=== PATIENT | female | born 1980 | race Caucasian/White ===

== ENCOUNTER 2020-12-26 12:04 | Emergency (ER) | payer BC, SELFPAY ==
[2020-12-26 12:17] VITALS: BP 141/90; PULSE 108; RESP 16; TEMP 37.3; O2SAT 99
--- NOTE | 2020-12-26 12:22 | ED.URI ---
HPI - URI/Sore Throat General Chief Complaint: Upper Respiratory Infection Stated Complaint: Congestion,Headache Time Seen by Provider: 12/26/20 12:33 Source: patient Mode of arrival: ambulatory Limitations: no limitations History of Present Illness HPI Narrative: Emily Church is a 40 yo female with a PMH of chronic sinus congestion, adenamous polyposis (FAP), comes with complaints of chronic sinus infection and increased congestion. Patient states she cannot take any kind of steroid or steroid nasal spray because it makes her headaches worse she has a lot of problems with headaches bilateral ear pain and TMJ that she relates to her sinus congestion. She recently moved here but states that the only thing that works for dealing with her sinuses and her chronic conditions are antibiotics and she is allergic to many of them Related Data Home Medications Medication Instructions Recorded Confirmed loperamide 2 mg PO QID 12/26/20 12/26/20 Allergies Allergy/AdvReac Type Severity Reaction Status Date / Time amoxicillin Allergy Nausea and Verified 12/26/20 12:29 Vomiting levofloxacin [From Levaquin] Allergy Hives Verified 12/26/20 12:29 scopolamine Allergy Hallucinati Verified 12/26/20 12:29 ng Sulfa (Sulfonamide Allergy Rash Verified 12/26/20 12:29 Antibiotics) tramadol Allergy Rash Verified 12/26/20 12:29 Review of Systems Review of Systems: Narrative: CONSTITUTIONAL: Denies fever, chills, sweats. EYES: Denies visual changes, redness, discharge. ENT: Denies rhinorrhea, mild congestion, mild sore throat, mild otalgia. Complaining of headache and chronic congestion CARDIOVASCULAR: Denies chest pain, palpitations, edema. RESPIRATORY: Denies dyspnea, wheezing, cough GASTROINTESTINAL: Denies abdominal pain, nausea, vomiting, diarrhea. GENITOURINARY: Denies dysuria, hematuria, abnormal discharge SKIN: Denies rash or itching. NEUROLOGIC: Denies numbness, or focal weakness. PSYCHIATRIC: Denies anxiety or depression. [facility] Past Medical History Medical History (Updated 12/26/20 @ 12:51 by Chanelle Cunningham CNP) Anemia FAP (familial adenomatous polyposis) TMJ arthralgia Family History Family History Other FAP (familial adenomatous polyposis) Social History Social History (Updated 12/26/20 @ 12:45 by Chanelle Cunningham CNP) Smoking status: Never smoker Alcohol intake: never Comments At time of signature, I agree with nursing past medical, surgical, social and family history. There is no relevant family history pertinent to the presenting complaint. Exam Narrative: Exam Narrative: GENERAL: This is a well-nourished, well-developed patient, in mild distress. HEAD: normocephalic, atraumatic. EYES: Sclera clear/white. Vision is grossly intact. EARS: External ears normal, auditory canals erythema and without drainage, TMs normal without perforation. Hearing grossly intact. NOSE: External nose normal with nasal discharge, nares with redness, has rhinorrhea. THROAT: Mucous membranes moist, posterior pharynx mild erythema no exudate NECK: Neck supple, non-tender CARDIOVASCULAR: Regular rate and rhythm without murmurs, gallops, or rubs. RESPIRATORY: Clear to auscultation. Breath sounds equal bilaterally. No wheezes, rales, or rhonchi. GASTROINTESTINAL: Abdomen soft, non-tender, SKIN: warm, intact with no suspicious lesions or rash, good texture and turgor. NEURO: awake, alert, and oriented to person, place and time. There were no obvious focal neurologic abnormalities. Steady gait EXTREMITIES: Normal range of motion. BACK: Nontender without deformity Course Course Emergency Course: Patient here for medication for sinus infection that she has had for 4 to 5 weeks she states that she is not able to take any kind of prednisone or Flonase and [id number] antihistamines and pain medication has not been useful she is recently moved here and use
== END 2020-12-26 12:53 | disposition home or self-care (01) ==
PROVIDERS: Emergency Provider Nurse Practitioner
DX: J32.9 Chronic sinusitis, unspecified (principal); D12.6 Benign neoplasm of colon, unspecified
CPT/HCPCS: 99203; G0463

== ENCOUNTER 2022-01-04 19:24 | Emergency (ER) | payer BC, SELFPAY ==
[2022-01-04] VITALS (21 sets, daily range): BP systolic 123–162; BP diastolic 67–110; PULSE 114–148; RESP 18–29; TEMP 36.3; O2SAT 95–100
--- NOTE | ~2022-01-04 | CT_ITS ---
EXAMINATION: CT brain wo con DATE: 01/04/2022 20:21 INDICATION: Unresponsive. TECHNIQUE: Computed tomography (CT) of the head was performed without intravenous contrast. The mA wa s adjusted according to patient size. Iterative reconstruction technique was employed. The dose-lengt h product was 605.33 mGy-cm. COMPARISON: None FINDINGS: There is no intracranial hemorrhage, acute infarction, or abnormal intracranial mass lesion . There is an empty sella. The ventricles are normal in size. The orbits are normal. The paranasal si nuses are clear. The mastoid air cells are normal. IMPRESSION: 1. No acute intracranial pathology. Reviewed, dictated and finalized at location A.
--- NOTE | 2022-01-04 19:39 | ECG_ITS ---
Measurements Intervals [place] Rate: 110 P: 36 FL: 153 QRS: 28 QRSD: 77 T: 41 QT: 316 QTc: 428 Interpretive Statements SINUS TACHYCARDIA BORDERLINE ST-T WAVE ABNORMALITY- INFERIOR LEADS ABNORMAL ECG Electronically Signed On 01-05-2022 6:38:52 CDT by Chauncey Sloan D.O.
[2022-01-04 19:51] LABS: Basophils Absolute Auto 0.1 K/mm3 (0.0-0.1); Basophils Percent Auto 0.8 % (0.2-1.2); Eosinophils Absolute Auto 0.3 K/mm3 (0-0.3); Eosinophils Percent Auto 3.4 % (0-4.4); Hematocrit 43.7 % (37.0-47.0); Hemoglobin 13.9 g/dL (12.0-15.0); Immature Granulocyte Absolute 0.05 K/mm3 (0.00-0.031); Immature Granulocyte Percent A 0.5 % (0-0.5); Lymphocytes Absolute Auto 3.52 K/mm3 (0.9-3.2); Lymphocytes Percent Auto 37.2 % (18.3-44.2); Mean Corpuscular HGB Conc 31.8 g/dl (32-36); Mean Corpuscular Hemoglobin 26.4 pg (26-34); Mean Corpuscular Volume 83.1 fl (80-100); Monocytes Absolute Auto 0.7 K/mm3 (0.1-0.6); Monocytes Percent Auto 7.3 % (2.6-8.5); Neutrophils Absolute Auto 4.8 K/mm3 (1.3-6.7); Neutrophils Percent Auto 50.8 % (45.5-73.1); Platelet Count Result 280 k/mm3 (150-375); Red Blood Count 5.26 M/mm3 (4.2-5.4); Red Cell Distribution Width 13.1 % (11.5-14.5); White Blood Count 9.5 K/mm3 (4.5-10.0)
[2022-01-04 20:02] LABS: Alanine Aminotransferase 24 U/L (4-35); Albumin Level 4.4 g/dL (3.5-5.1); Alkaline Phosphatase 55 U/L (38-126); Anion Gap 14 mmol/L (8-16); Aspartate Amino Transferase 31 U/L (14-36); Bilirubin,Total 0.1 mg/dL (0.2-1.3); Blood Urea Nitrogen 11 mg/dL (7-17); Calcium 9.5 mg/dL (8.4-10.2); Carbon Dioxide 18 mmol/L (22-30); Chloride 104 mmol/L (98-107); Glucose 153 mg/dL (65-110); Potassium 3.6 mmol/L (3.4-5.0); Sodium 136 mmol/L (137-145)
[2022-01-04 20:21] LABS: Estimated Glomerular Filt Rate > 60
--- NOTE | 2022-01-04 20:23 | ED.SEIZURE ---
HPI - Seizure General Chief Complaint: Seizure Stated Complaint: SEIZURE Time Seen by Provider: 01/04/22 19:53 Source: patient History of Present Illness HPI Narrative: Patient presents with concern for seizure. She was at high school concert she was trying to describe something a student was doing was having a hard time finding the right word when her eyes went wide her left arm extended her right arm retracted she went stiff. Event was witnessed the patient was lowered to the ground and the event lasted 2 to 3 minutes and the patient slowly returned to her baseline. Patient reports a mild headache now but does report a history of migraines otherwise feels like her usual self. She felt well earlier in the day she denies any recent fevers, cough, congestion, nausea, vomiting. She denies prior similar episodes. Related Data Home Medications Medication Instructions Recorded Confirmed dicyclomine 20 mg tablet 20 mg PO BID 06/08/21 06/27/21 ferrous sulfate 27 mg iron tablet 27 mg PO DAILY 06/08/21 06/27/21 multivitamin 1 tablet PO DAILY 06/08/21 06/27/21 omeprazole 20 mg tablet,delayed 20 mg PO DAILY 06/08/21 06/27/21 release cholecalciferol (vitamin D3) 250 250 mcg PO DAILY 11/30/21 mcg (10,000 unit) capsule diphenhydramine HCl 25 mg tablet 25 mg PO QHS 11/30/21 esterified estrogens 0.3 mg tablet 0.3 mg PO DAILY 11/30/21 lactobacillus combination no.9 4 PO 11/30/21 billion cell capsule loratadine 10 mg tablet 10 mg PO DAILY 11/30/21 omega-3 fatty acids 500 mg capsule 500 mg PO DAILY 11/30/21 propranolol 40 mg tablet 40 mg PO Q12H 11/30/21 vitamin K2 45 mcg capsule 45 mcg PO DAILY 11/30/21 Allergies Allergy/AdvReac Type Severity Reaction Status Date / Time sulfamethoxazole Allergy Mild Vomiting Verified 11/30/21 09:45 [From Bactrim] sumatriptan [From Imitrex] Allergy Mild Nausea Verified 11/30/21 09:45 trimethoprim [From Bactrim] Allergy Mild Vomiting Verified 11/30/21 09:45 amoxicillin Allergy Nausea and Verified 11/30/21 09:45 Vomiting levofloxacin [From Levaquin] Allergy Hives Verified 11/30/21 09:45 scopolamine Allergy Hallucinati Verified 11/30/21 09:45 ng Sulfa (Sulfonamide Allergy Rash Verified 11/30/21 09:45 Antibiotics) tramadol Allergy Rash Verified 11/30/21 09:45 Review of Systems Review of Systems: CONSTITUTIONAL: Denies fever, chills, or sweats. EYES: Denies visual changes, redness, or discharge. ENT: Denies rhinorrhea, congestion, sore throat, or otalgia. CARDIOVASCULAR: Denies chest pain, palpitations, or edema. RESPIRATORY: Denies cough or dyspnea. GASTROINTESTINAL: Denies abdominal pain, nausea, vomiting, or diarrhea. GENITOURINARY: Denies dysuria or hematuria. SKIN: Denies rash or itching. MUSCULOSKELETAL: Denies back pain, joint pain, or myalgia. NEUROLOGIC: Denies numbness, dizziness, or weakness. PSYCHIATRIC: Denies anxiety or depression. All systems reviewed & are unremarkable except as noted in HPI and below PMFSH Past Medical History Medical History Allergies Anemia Attenuated familial adenomatous polyposis GERD (gastroesophageal reflux disease) TMJ arthralgia Surgical History Surgical History Hx of ileostomy And reversal Hx of total colectomy S/P dilation and curettage S/P endometrial ablation Family History Family History Father Cancer Heart problem Mother Hypertension Sibling Asthma Grandparent Cancer Heart problem Other FAP (familial adenomatous polyposis) Social History Social History Smoking status: Never smoker Alcohol intake: never Substance use: never Exam Narrative: GENERAL: Well-appearing, well-nourished, and in no acute distress. HEAD: Normocephalic, atraumatic. EYES: PERRLA and EOMI. ENT:
[2022-01-04] MEDS: METOCLOPRAMIDE HCL INJ 10 MG/2 ML VIAL IV PUSH (21:06)
[2022-01-04] MEDS: SODIUM CHLORIDE 0.9% IV 1,000 ML 999 ML IV CONT (21:07)
[2022-01-08 22:08] LABS: Prolactin 67.4 ng/mL (***)
== END 2022-01-04 22:30 | disposition home or self-care (01) ==
PROVIDERS: Emergency Provider Emergency Medicine; PCP Internal Medicine
DX: R40.4 Transient alteration of awareness (principal); Z86.2 Personal history of diseases of the blood and blood-forming organs and certain disorders involving the immune mechanism; K21.9 Gastro-esophageal reflux disease without esophagitis; Z90.49 Acquired absence of other specified parts of digestive tract; R00.0 Tachycardia, unspecified; R94.31 Abnormal electrocardiogram [ECG] [EKG]
CPT/HCPCS: 36415; 70450; 80053; 84146; 85025; 93005; 96365; 96375; 99284; J0131; J2765; J7030

== ENCOUNTER 2022-01-25 09:54 | Outpatient (CLI) | payer BC, SELFPAY ==
--- NOTE | ~2022-01-25 | MR_ITS ---
EXAMINATION: MR brain/brain stem wo/w con DATE: 01/25/2022 10:48 INDICATION: Transient alteration of awareness. TECHNIQUE: Magnetic resonance imaging (MRI) of the brain and brainstem was performed without and with 13 mL MultiHance intravenous contrast. COMPARISON: Head CT 01/04/2022 FINDINGS: There is no intracranial hemorrhage, acute infarction, or abnormal intracranial mass lesion . There is an empty sella. The ventricles are normal in size. The orbits are normal. There is a mucou s retention cyst in left maxillary sinus. The mastoid air cells are normal. IMPRESSION: 1. No etiology for the patient's symptoms. Reviewed, dictated and finalized at location A.
--- NOTE | ~2022-01-25 | US_ITS ---
EXAMINATION: US thyroid DATE: 01/25/2022 11:21 INDICATION: Benign neoplasm of colon, unspecified. Attenuated familial adenomatous polyposis. TECHNIQUE: Multiple ultrasound images of the thyroid were obtained. COMPARISON: None. FINDINGS: The right thyroid lobe measures 4.6 x 1.5 x 1.6 cm. The left thyroid lobe measures 4.6 x 1.4 x 1.6 c m. There is normal echotexture and echogenicity throughout the thyroid gland. No discrete nodules id entified. Normal vascular flow is present. IMPRESSION: 1. Normal thyroid. Reviewed, dictated and finalized at location A. IMPRESSION: 1. Normal thyroid.
== END 2022-01-25 09:55 | disposition home or self-care (01) ==
PROVIDERS: PCP Internal Medicine; Visit Provider Clinical Nurse Specialist
DX: R40.4 Transient alteration of awareness (principal); D12.6 Benign neoplasm of colon, unspecified
CPT/HCPCS: 70553; 76536; A9577

== ENCOUNTER 2022-02-14 12:48 | Outpatient (CLI) | payer BC, SELFPAY ==
--- NOTE | 2022-02-14 14:01 | ECHO_ITS ---
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 Strain analysis performed. Summary 1. Complete two-dimensional, color flow and Doppler transthoracic echocardiogram is performed. 2. Left ventricular chamber dimension is normal. 3. Left ventricular systolic function is normal, estimated at 60-65%. 4. The left ventricular diastolic function is grade I diastolic dysfunction. 5. E/e' 8 is minimally elevated. 6. Global longitudinal strain is normal at -19.3%. 7. Dilated inferior vena cava with >50% collapse upon inspiration consistent with elevated right atrial pressure, 10 mmHg. Left Ventricle E/e' 8 is minimally elevated. Global longitudinal strain is normal at -19.3%. Left ventricular chamber dimension is normal. Left ventricular systolic function is normal, estimated at 60-65%. The left ventricular diastolic function is grade I diastolic dysfunction. Right Ventricle Right ventricular chamber dimension is normal. Right ventricular systolic function is normal. Left Atria Left atrial chamber dimension is normal. Right Atria Right atrial chamber dimension is normal. Aortic Valve The aortic valve is trileaflet. There is no aortic valve stenosis. There is no aortic valve regurgitation. Pulmonic Valve There is no pulmonic regurgitation. Mitral Valve There is no mitral valve stenosis. There is no mitral valve regurgitation. Tricuspid Valve There is no tricuspid valve regurgitation. Pericardium/Pleural There is no pericardial effusion. Inferior Vena Cava Dilated inferior vena cava with >50% collapse upon inspiration consistent with elevated right atrial pressure, 10 mmHg. Aorta The aortic root size at the sinus of Valsalva is normal. Left Ventricular Outflow Tract Name Value Normal LVOT 2D LVOT Diameter 2.1 cm LVOT Doppler LVOT Peak Gradient 4 mmHg LVOT Mean Gradient 2 mmHg LVOT VTI 20 cm LVOT VTI/AV VTI Ratio 0.7 LVOT Stroke Volume 72 ml LVOT CO 5.7 l/min LVOT CI 3.4 l/min/m2 Mitral Valve Name Value Normal MV Doppler
--- NOTE | 2022-02-15 09:50 | WPDNEUROLOGY ---
Neurology EEG Report General Information Date of Study: 02/14/22 TEST EEG DIAGNOSIS possible seizures CONDITION OF RECORDING awake drowsy and sleep EEG NUMBER [id number] CLINICAL HISTORY patient reports about a month ago she had an episode of aphasia, becoming rigid and then lost consciousness EEG DESCRIPTION basic resting occipital frequency consists of low to medium voltage 9 to 10 hertz per 2nd alpha admixed with low-voltage 15 to 18 hertz per 2nd beta. During drowsiness low-voltage beta activity seen diffusely admixed with intermittent posterior alpha rhythm. Bilateral symmetrical sleep activity seen during sleep of different stages. Hyperventilation not done. Photic stimulation produced normal drive. Non paroxysmal. Nonfocal. Nonlateralizing. IMPRESSION Normal record. Clinical correlation recommended
== END 2022-02-14 12:49 | disposition home or self-care (01) ==
PROVIDERS: PCP Internal Medicine; Visit Provider Clinical Nurse Specialist
DX: R40.4 Transient alteration of awareness (principal)
CPT/HCPCS: 93306; 95816

== ENCOUNTER 2022-03-04 11:15 | Emergency (ER) | payer BC, SELFPAY ==
[2022-03-04] VITALS (18 sets, daily range): BP systolic 121–154; BP diastolic 74–93; PULSE 83–115; RESP 17–29; TEMP 36.3; O2SAT 92–97
--- NOTE | ~2022-03-04 | CT_ITS ---
Patient Name: Patient Name MR#: Patient MRN Accession#: Accession Numbers EXAMINATION: CTA brain carotid DATE: 03/04/2022 13:26 INDICATION: seizure TECHNIQUE: Computed tomographic angiography (CTA) of the head was performed without and with 100 mL O mnipaque-350 intravenous contrast. CTA of the neck was performed with intravenous contrast. The dose- length product was 1700.12 mGy-cm. Maximum intensity projection and volume rendered 3D-reconstruction s were created by the technologist on a separate workstation. COMPARISON: None. FINDINGS: CTA NECK: Aortic arch and proximal great vessels: Unremarkable. Right common carotid, carotid bifurcation, and internal carotid artery: No significant plaque.There i s 0% stenosis of the proximal right internal carotid artery relative to normal distal artery lumen di ameter (NASCET criteria). Left common carotid, carotid bifurcation, and internal carotid artery: No significant plaque.There is 0% stenosis of the proximal left internal carotid artery relative to normal distal artery lumen diam eter (NASCET criteria). Vertebral arteries: No significant plaque or stenosis. Other findings: None. CTA HEAD: No large vessel occlusion, aneurysm, high flow vascular malformation, nidus or extravasation. CT BRAIN: No acute large vessel infarct, intracranial hemorrhage, mass, or hydrocephalus. IMPRESSION: 1. No acute intracranial process. 2. No large vessel occlusion or significant carotid or vertebral stenosis. Reviewed, dictated and finalized at location K.
--- NOTE | 2022-03-04 11:38 | ECG_ITS ---
Measurements Intervals [place] Rate: 124 P: 43 WA: 163 QRS: 23 QRSD: 80 T: 28 QT: 307 QTc: 442 Interpretive Statements SINUS TACHYCARDIA DELAYED PRECORDIAL R/S TRANSITION BORDERLINE ST-T WAVE ABNORMALITY- INFERIOR LEADS BASELINE ARTIFACT- AVF ABNORMAL ECG Electronically Signed On 03-04-2022 17:17:36 CDT by Chauncey Sloan D.O.
--- NOTE | 2022-03-04 12:07 | ED.SEIZURE ---
HPI - Seizure General Chief Complaint: Seizure Stated Complaint: seizure Time Seen by Provider: 03/04/22 11:31 History of Present Illness HPI Narrative: pt returns for second sz this time on toilet and family member says lasted 4min shaking face turned hendricks no cpr needed slid off toilet no truama. did bite tongue no losss bowel habits, was here december 2021 same and has f/u [facility] since ct head and mri brain neg no neck or iv imaging but also neg dr cervantes eeg and echo neg. labs neg ekg neg only other issue pt has colon gone due to familial ad polyposis and also says since anemia and [place] says bp up when seeing docs but hasn't kept a log at home despite having cuffs at home to see if up there as well no bp meds Related Data Home Medications Medication Instructions Recorded Confirmed dicyclomine 20 mg tablet 20 mg PO PRN 06/08/21 01/11/22 ferrous sulfate 27 mg iron tablet 27 mg PO DAILY 06/08/21 01/11/22 multivitamin 1 tablet PO DAILY 06/08/21 01/11/22 omeprazole 20 mg tablet,delayed 20 mg PO DAILY 06/08/21 01/11/22 release cholecalciferol (vitamin D3) 250 250 mcg PO DAILY 11/30/21 01/11/22 mcg (10,000 unit) capsule diphenhydramine HCl 25 mg tablet 25 mg PO QHS 11/30/21 01/11/22 (Benadryl Allergy) esterified estrogens 0.3 mg tablet 0.3 mg PO DAILY 11/30/21 01/11/22 lactobacillus combination no.9 4 PO 11/30/21 01/11/22 billion cell capsule (Adult 50 Plus Probiotic) loratadine 10 mg tablet (Claritin) 10 mg PO DAILY 11/30/21 01/11/22 omega-3 fatty acids 500 mg capsule 500 mg PO DAILY 11/30/21 01/11/22 propranolol 40 mg tablet 40 mg PO Q12H 11/30/21 01/11/22 vitamin K2 45 mcg capsule 45 mcg PO DAILY 11/30/21 01/11/22 biotin 1 mg capsule 1 mg PO DAILY 01/11/22 01/11/22 magnesium oxide 400 mg (241.3 mg 400 mg PO DAILY 01/11/22 01/11/22 magnesium) tablet cyclobenzaprine 5 mg tablet tablet 03/04/22 potassium chloride 10 mEq meq 03/04/22 capsule,extended release Allergies Allergy/AdvReac Type Severity Reaction Status Date / Time amoxicillin Allergy Rash Verified 03/04/22 11:32 scopolamine Allergy Blurred Verified 03/04/22 11:32 vision sulfamethoxazole AdvReac Mild Vomiting Verified 03/04/22 12:01 [From Bactrim] sumatriptan [From Imitrex] AdvReac Mild Nausea Verified 03/04/22 12:01 trimethoprim [From Bactrim] AdvReac Mild Vomiting Verified 03/04/22 12:01 levofloxacin [From Levaquin] AdvReac Extreme Verified 03/04/22 12:01 vomiting Sulfa (Sulfonamide AdvReac Vomiting Verified 03/04/22 12:01 Antibiotics) tramadol AdvReac Vomiting Verified 03/04/22 12:01 Review of Systems Constitutional: Comments: CONSTITUTIONAL: Denies fever, chills, or sweats. EYES: Denies visual changes, redness, or discharge. ENT: Denies rhinorrhea, congestion, sore throat, or otalgia. CARDIOVASCULAR: Denies chest pain, palpitations, or edema. RESPIRATORY: Denies cough or dyspnea. GASTROINTESTINAL: Denies abdominal pain, nausea, vomiting, or diarrhea. GENITOURINARY: Denies dysuria or hematuria. SKIN: Denies rash or itching. MUSCULOSKELETAL: Denies back pain, joint pain, or myalgia. NEUROLOGIC: Denies headache, numbness, or weakness. PSYCHIATRIC: Denies anxiety or depression. [facility] Past Medical History Medical History Allergies Anemia Attenuated familial adenomatous polyposis GERD (gastroesophageal reflux disease) TMJ arthralgia Surgical History Surgical History Hx of ileostomy And reversal Hx of total colectomy S/P dilation and curettage S/P endometrial ablation Family History Family History Father Cancer Heart problem Mother Hypertension Sibling Asthma Grandparent Cancer Heart problem Seizure disorder Other FAP (familial adenomatous polyposis) Social History Social Hist
[2022-03-04 12:30] LABS: Basophils Absolute Auto 0.1 K/mm3 (0.0-0.1); Basophils Percent Auto 0.7 % (0.2-1.2); Eosinophils Absolute Auto 0.2 K/mm3 (0-0.3); Eosinophils Percent Auto 2.5 % (0-4.4); Hematocrit 42.9 % (37.0-47.0); Hemoglobin 14.4 g/dL (12.0-15.0); Immature Granulocyte Absolute 0.03 K/mm3 (0.00-0.031); Immature Granulocyte Percent A 0.4 % (0-0.5); Mean Corpuscular HGB Conc 33.6 g/dl (32-36); Mean Corpuscular Hemoglobin 26.6 pg (26-34); Mean Corpuscular Volume 79.3 fl (80-100); Mean Platelet Volume 8.6 fl (7.4-10.4); Monocytes Absolute Auto 0.5 K/mm3 (0.1-0.6); Monocytes Percent Auto 6.4 % (2.6-8.5); Neutrophils Absolute Auto 5.6 K/mm3 (1.3-6.7); Platelet Count Result 310 k/mm3 (150-375); Red Blood Count 5.41 M/mm3 (4.2-5.4); Red Cell Distribution Width 12.9 % (11.5-14.5); White Blood Count 7.7 K/mm3 (4.5-10.0)
[2022-03-04 12:45] LABS: Alanine Aminotransferase 32 U/L (6-35); Albumin Level 4.6 g/dL (3.5-5.1); Alkaline Phosphatase 55 U/L (38-126); Anion Gap 9 mmol/L (8-16); Aspartate Amino Transferase 39 U/L (14-36); Bilirubin,Total 0.4 mg/dL (0.2-1.3); Blood Urea Nitrogen 14 mg/dL (7-17); Calcium 9.6 mg/dL (8.4-10.2); Carbon Dioxide 22 mmol/L (22-30); Chloride 108 mmol/L (98-107); Estimated Glomerular Filt Rate > 60; Glucose 117 mg/dL (65-110); Potassium 4.4 mmol/L (3.4-5.0); Sodium 139 mmol/L (137-145)
[2022-03-04] MEDS: levETIRAcetam IV 750 MG in DEXTROSE 5% 100 ML 430 MG IVPB (12:46)
[2022-03-04] MEDS: ONDANSETRON INJ 4 MG/2 ML VIAL IV PUSH (13:47)
[2022-03-04] MEDS: KETOROLAC 30 MG/ML VIAL (*BKC) IV PUSH (16:12)
== END 2022-03-04 16:46 | disposition home or self-care (01) ==
PROVIDERS: Emergency Provider Emergency Medicine; PCP Internal Medicine
DX: R56.9 Unspecified convulsions (principal); K21.9 Gastro-esophageal reflux disease without esophagitis; Z86.2 Personal history of diseases of the blood and blood-forming organs and certain disorders involving the immune mechanism; R00.0 Tachycardia, unspecified; R94.31 Abnormal electrocardiogram [ECG] [EKG]
CPT/HCPCS: 36415; 70496; 70498; 80053; 85025; 93005; 96365; 96367; 96375; 99284; J0131; J1885; J1953; J2405; Q9967

== ENCOUNTER → 2023-06-28 15:55 | Outpatient (CLI) | payer BC, SELFPAY ==
--- NOTE | ~2023-06-28 | MM_ITS ---
EXAMINATION: MM screening mendoza BI w reece HISTORY: Screening mammogram TECHNIQUE: Craniocaudal and mediolateral oblique 3-D tomosynthesis images were obtained and synthetic 2-D images were generated. CAD analysis was submitted and interpreted. COMPARISON: No prior mammogram is available for comparison at this institution. Baseline examination. BREAST PARENCHYMAL COMPOSITION: There are scattered areas of fibroglandular density. FINDINGS: There is no evidence of suspicious mass, calcification, or architectural distortion to sugg est malignancy in either breast. IMPRESSION: 1. No mammographic evidence of malignancy. 2. Recommend routine screening mammography in one year. BI-RADS Category 1: Negative Reviewed, dictated and finalized at location A.
== END ==
PROVIDERS: PCP Clinical Nurse Specialist; Visit Provider Obstetrics & Gynecology
DX: Z12.31 Encounter for screening mammogram for malignant neoplasm of breast (principal)
CPT/HCPCS: 77063; 77067

== ENCOUNTER 2023-08-21 10:55 | Outpatient (CLI) | payer BC, SELFPAY ==
[2023-08-21 18:59] LABS: Basophils Absolute Auto 0.1 K/mm3 (0.0-0.1); Basophils Percent Auto 0.8 % (0.2-1.2); Eosinophils Absolute Auto 0.3 K/mm3 (0-0.3); Eosinophils Percent Auto 4.7 % (0-4.4); Hematocrit 40.3 % (37.0-47.0); Hemoglobin 12.7 g/dL (12.0-15.0); Immature Granulocyte Absolute 0.02 K/mm3 (0.00-0.031); Immature Granulocyte Percent A 0.3 % (0-0.5); Lymphocytes Absolute Auto 2.18 K/mm3 (0.9-3.2); Lymphocytes Percent Auto 35.3 % (18.3-44.2); Mean Corpuscular HGB Conc 31.5 g/dl (32-36); Mean Corpuscular Hemoglobin 26.5 pg (26-34); Mean Platelet Volume 9.4 fl (7.4-10.4); Monocytes Absolute Auto 0.4 K/mm3 (0.1-0.6); Monocytes Percent Auto 6.8 % (2.6-8.5); Neutrophils Absolute Auto 3.2 K/mm3 (1.3-6.7); Neutrophils Percent Auto 52.1 % (45.5-73.1); Platelet Count Result 269 k/mm3 (150-375); Red Cell Distribution Width 12.9 % (11.5-14.5); White Blood Count 6.2 K/mm3 (4.5-10.0)
[2023-08-21 19:09] LABS: Iron 100 ug/dL (37-170)
[2023-08-21 19:19] LABS: Percent Iron Saturation 30 % (20-50)
[2023-08-21 19:55] LABS: Alanine Aminotransferase 37 U/L (6-35); Albumin Level 4.2 g/dL (3.5-5.1); Alkaline Phosphatase 61 U/L (38-126); Anion Gap 5 mmol/L (8-16); Aspartate Amino Transferase 38 U/L (14-36); Bilirubin,Total 0.4 mg/dL (0.2-1.3); Blood Urea Nitrogen 14 mg/dL (7-17); Calcium 9.7 mg/dL (8.4-10.2); Carbon Dioxide 28 mmol/L (22-30); Chloride 107 mmol/L (98-107); Cholesterol 241 mg/dL (0-200); Estimated Glomerular Filt Rate > 60; Glucose 95 mg/dL (65-110); HDL Direct 43 mg/dL; Potassium 4.6 mmol/L (3.4-5.0); Sodium 140 mmol/L (137-145); Triglycerides 153 mg/dL (<150)
[2023-08-21 20:04] LABS: LDL Cholesterol Direct 143 mg/dL
== END 2023-08-21 10:56 | disposition home or self-care (01) ==
LOC: ANHGOSHLAB 10:56
PROVIDERS: PCP Clinical Nurse Specialist; Visit Provider Clinical Nurse Specialist
DX: E78.5 Hyperlipidemia, unspecified (principal); D64.9 Anemia, unspecified; R53.83 Other fatigue; E55.9 Vitamin D deficiency, unspecified; Z13.228 Encounter for screening for other metabolic disorders
CPT/HCPCS: 36415; 80053; 80061; 82306; 82728; 83540; 83550; 84443; 85025

== ENCOUNTER 2023-10-21 17:07 | Outpatient (CLI) | payer BC, SELFPAY ==
[2023-10-21 17:54] LABS: Anion Gap 6 mmol/L (8-16); Blood Urea Nitrogen 17 mg/dL (7-17); Calcium 9.5 mg/dL (8.4-10.2); Carbon Dioxide 26 mmol/L (22-30); Chloride 106 mmol/L (98-107); Estimated Glomerular Filt Rate > 60; Glucose 103 mg/dL (65-110); Potassium 4.1 mmol/L (3.4-5.0); Sodium 138 mmol/L (137-145)
== END 2023-10-21 17:08 | disposition home or self-care (01) ==
LOC: ANHLAB 17:09
PROVIDERS: PCP Clinical Nurse Specialist; Visit Provider Clinical Nurse Specialist
DX: I10 Essential (primary) hypertension (principal)
CPT/HCPCS: 36415; 80048

== ENCOUNTER 2024-09-04 09:21 | Outpatient (CLI) | payer BC, SELFPAY ==
[2024-09-04 14:35] LABS: Basophils Percent Auto 0.7 % (0.2-1.2); Eosinophils Absolute Auto 0.3 K/mm3 (0-0.3); Eosinophils Percent Auto 4.3 % (0-4.4); Hematocrit 39.4 % (37.0-47.0); Hemoglobin 12.8 g/dL (12.0-15.0); Immature Granulocyte Absolute 0.02 K/mm3 (0.00-0.031); Immature Granulocyte Percent A 0.3 % (0-0.5); Lymphocytes Absolute Auto 1.98 K/mm3 (0.9-3.2); Lymphocytes Percent Auto 33.8 % (18.3-44.2); Mean Corpuscular HGB Conc 32.5 g/dl (32-36); Mean Corpuscular Hemoglobin 26.6 pg (26-34); Mean Corpuscular Volume 81.9 fl (80-100); Mean Platelet Volume 9.5 fl (7.4-10.4); Monocytes Absolute Auto 0.3 K/mm3 (0.1-0.6); Monocytes Percent Auto 5.8 % (2.6-8.5); Neutrophils Absolute Auto 3.2 K/mm3 (1.3-6.7); Neutrophils Percent Auto 55.1 % (45.5-73.1); Platelet Count Result 285 k/mm3 (150-375); Red Blood Count 4.81 M/mm3 (4.2-5.4); White Blood Count 5.9 K/mm3 (4.5-10.0)
[2024-09-04 15:25] LABS: Alanine Aminotransferase 37 U/L (6-35); Albumin Level 4.4 g/dL (3.5-5.1); Alkaline Phosphatase 59 U/L (38-126); Anion Gap 3 mmol/L (4-12); Aspartate Amino Transferase 81 U/L (14-36); Bilirubin,Total 0.6 mg/dL (0.2-1.3); Blood Urea Nitrogen 18 mg/dL (7-17); Calcium 10.1 mg/dL (8.4-10.2); Carbon Dioxide 28 mmol/L (22-30); Chloride 106 mmol/L (98-107); Cholesterol 247 mg/dL (0-200); Estimated Glomerular Filt Rate > 60; Glucose 100 mg/dL (65-110); HDL Direct 42 mg/dL; Magnesium 2.2 mg/dL (1.6-2.3); Potassium 4.6 mmol/L (3.4-5.0); Sodium 137 mmol/L (137-145); Triglycerides 183 mg/dL (<150)
[2024-09-04 15:36] LABS: LDL Cholesterol Direct 142 mg/dL
[2024-09-04 15:55] LABS: Thyroid Stimulating Hormone 0.229 uIU/mL (0.465-4.680)
[2024-09-04 17:18] LABS: Iron 104 ug/dL (37-170)
[2024-09-04 17:21] LABS: Percent Iron Saturation 27 % (20-50); TOTAL IRON BINDING CAPACITY 381 ug/dL (261-462)
[2024-09-07 14:54] LABS: Thyroid Peroxidase Antibodies 1 IU/mL (<9)
== END 2024-09-04 09:22 | disposition home or self-care (01) ==
LOC: ANHGOSHLAB 09:23
PROVIDERS: PCP Internal Medicine; Visit Provider Clinical Nurse Specialist
DX: E78.2 Mixed hyperlipidemia (principal); I10 Essential (primary) hypertension; E83.42 Hypomagnesemia; D64.9 Anemia, unspecified; R56.9 Unspecified convulsions; R53.83 Other fatigue; R73.9 Hyperglycemia, unspecified
CPT/HCPCS: 36415; 80053; 80061; 82306; 82607; 82728; 83036; 83540; 83550; 83735; 84443; 85025; 86376

== ENCOUNTER 2025-01-08 15:02 | Outpatient (CLI) | payer BC, SELFPAY ==
--- NOTE | ~2025-01-08 | MM_ITS ---
EXAMINATION: MM screening mendoza BI w reece HISTORY: Screening TECHNIQUE: Craniocaudal and mediolateral oblique 3-D tomosynthesis images were obtained and synthetic 2-D images were generated. CAD analysis was submitted and interpreted. COMPARISON: 06/28/2023 BREAST PARENCHYMAL COMPOSITION: Not dense: There are scattered areas of fibroglandular density. FINDINGS: There is no evidence of suspicious mass, calcification, or architectural distortion to sugg est malignancy in either breast. There has been no suspicious interval change. IMPRESSION: 1. No mammographic evidence of malignancy. 2. Recommend routine screening mammography in one year. BI-RADS Category 1: Negative Reviewed, dictated and finalized at location A.
== END 2025-01-08 15:03 | disposition home or self-care (01) ==
LOC: MICIMG 15:03
PROVIDERS: PCP Clinical Nurse Specialist; Visit Provider Nurse Practitioner Obstetrics & Gynecology
DX: Z12.31 Encounter for screening mammogram for malignant neoplasm of breast (principal)
CPT/HCPCS: 77063; 77067

== ENCOUNTER 2025-03-31 10:42 | Outpatient (CLI) | payer BC, SELFPAY ==
--- NOTE | ~2025-03-31 | US_ITS ---
Thyroid ultrasound. Clinical History: Abnormal findings of blood chemistry Findings: Real-time sonography of the thyroid gland was performed. The right lobe measures 4.6 x 1.4 x 1.5 cm. The left lobe measures 4.4 x 1.3 x 1.5 cm. The isthmus is 2 mm in AP diameter. Thyroid parenchyma is homogeneous, without identifiable nodule. Impression: Unremarkable exam. Reviewed, dictated and finalized at location . Impression: Unremarkable exam.
== END 2025-03-31 10:43 | disposition home or self-care (01) ==
LOC: MICIMG 10:42
PROVIDERS: PCP Internal Medicine Interventional Cardiology; Visit Provider Clinical Nurse Specialist
DX: R79.89 Other specified abnormal findings of blood chemistry (principal); D12.6 Benign neoplasm of colon, unspecified; Z15.09 Genetic susceptibility to other malignant neoplasm
CPT/HCPCS: 76536